=== PATIENT | male | born 1950 | race Caucasian/White ===

== ENCOUNTER → 2016-02-24 | Outpatient (CLI) | payer BC ==
[~2016-02-24] MED LIST: ALDACTONE 25MG25 MG PO; ALDACTONE 50MG50 MG PO; ALLOPURINOL100 MG PO; AMLODIPINE BES10 MG PO; ASPIRIN EC325 M1 PO; ATORVASTATIN CA20 MG PO; CARBIDOPA/LE1 TABLE2 PO; CARVEDILOL 25MG25 MG PO; DICLOFENAC 50MG50 MG PO; FUROSEMIDE20 MG PO; HYDROCHLOROTHIA25 M1 PO; JANUMET 50-5001 EACH PO; LEVAQUIN500 MG PO; LEVOTHYROXIN0.075 M2 PO; LISINOPRIL40 MG PO; SIMVASTATIN40 MG PO; TAMSULOSIN HYD0.4 MG PO
[2016-02-24 16:58] LABS: LYMPH # 3.8 K/mm3 (0.7-4.5); LYMPH % 32.8 % (10-50)
[2016-02-24 17:08] LABS: HEMOGLOBIN 15.3 g/dL (14.1-18.0)
[2016-02-24 18:30] LABS: BUN 12 mg/dL (7-18)
[2016-02-24 18:40] LABS: GFR (ESTIMATED) 75 ML/MIN (>60)
== END ==
LOC: LAB 16:44
PROVIDERS: Internal Medicine Adolescent Medicine
DX: I25.10 Atherosclerotic heart disease of native coronary artery without angina pectoris (principal); E11.9 Type 2 diabetes mellitus without complications; E03.9 Hypothyroidism, unspecified
CPT/HCPCS: G6040

== ENCOUNTER → 2016-12-10 | Outpatient (CLI) | payer MEDICARE, OTHER ==
[2016-12-10 17:25] LABS: LYMPH # 4.3 K/mm3 (0.7-4.5); LYMPH % 37.6 % (10-50)
[2016-12-10 18:06] LABS: HEMOGLOBIN 15.8 g/dL (14.1-18.0)
[2016-12-10 18:44] LABS: BUN 14 mg/dL (7-18)
[2016-12-10 18:55] LABS: GFR (ESTIMATED) 55 ML/MIN (>60)
== END ==
LOC: LAB 16:16
PROVIDERS: Internal Medicine Adolescent Medicine
DX: E11.9 Type 2 diabetes mellitus without complications (principal); M10.9 Gout, unspecified

== ENCOUNTER → 2017-01-14 | Outpatient (CLI) | payer MEDICARE ==
[2017-01-14 13:31] LABS: BUN 20 mg/dL (7-18)
[2017-01-14 13:32] LABS: GFR (ESTIMATED) 55 ML/MIN (>60)
== END ==
LOC: LAB 10:27
PROVIDERS: Internal Medicine Adolescent Medicine
DX: R79.9 Abnormal finding of blood chemistry, unspecified (principal); E11.9 Type 2 diabetes mellitus without complications